=== PATIENT | female | born 1985 | race Asian ===

== ENCOUNTER 2018-01-19 17:55 | Inpatient (IN) | payer OTHER ==
[2018-01-19] MEDS ORDERED: Penicillin G Potassium IV* 5,000,000 UNITS in NS 0.9% 100 ML* 100 ML IVPB ONE (18:18)
[2018-01-19] MEDS ORDERED: OBEPIDURAL* 250 ML EPIDURAL ONE (18:33)
--- NOTE | 2018-01-19 18:33 | HP ---
General Information - Reason for Visit active labor - General Information Maternal Age: 32 Grav: 1 Para: 0 SAB: 0 IEA: 0 Estimated Due Date: 01/18/18 Determined By: Early Ultrasound Maternal Blood Type and Rh: B Positive - Results this Serology/RPR Result: Non-Reactive Rubella Result: Immune HBsAg Result: Negative HIV Result: Negative GBS Culture Result: Positive Past Medical History Pertinent Past Medical History: Non-Contributory Pertinent Past Surgical History: None Pertinent Family History: Non-Contributory - Antepartal Records Antepartal Records: Reviewed, Complicated by: - GBS positive Review of Systems Constitutional: Uncomfortable CV Complaint: No Respiratory: Shortness of Breath: No Gastrointestinal: No Nausea/Vomiting, Normal Bowel Movement Genitourinary: No Dysuria, No Bleeding, No Leaking Fluid, Spotting Musculoskeletal: Contractions Neurological: No Headache, No Visual Changes Movement: Normal Exam T:97.8, P:80, R:16, BP: 114/90, O2:99% - Measurements Height: 5 ft 1.02 in Weight: 118 lb Weight in lbs: [id number] Body Mass Index (BMI): 22.2 Pre- Weight: 103 lb Weight Gained This : 15 lbs and 0 ozs - Exam Breast: Breast Exam Deferred CVA: No CVA Tenderness Extremities: No Edema Heart: Normal Rhythm/Heart Sounds HEENT: No Significant Findings Lungs: Clear Bilaterally Rectal: Rectal Exam Deferred Reflexes: DTR 2+ Thyroid: No Thyromegaly - Abdominal Exam Abdomen Exam: Non-Tender, Fundal Height Consistent with Dates - Ultrasound/Biophysical Profile Ultrasound Status: Not Done Targeted Exam Findings Estimated Weight: 6lbs 12oz Cervical Exam: 5cm Effacement: 100% Station: +1 Presenting Part: Vertex Membrane Status: Intact Bleeding/Discharge: Bloody Show EFM Findings - External Monitor Findings Baseline Heart Rate: 140 External Monitor Findings: Accelerations Present, No Pattern of Variable or Late Decelerations, Variability Moderate, Baseline Stable Contractions: Regular, Moderate, 45-90 Seconds Contraction Frequency: 3-5 Assessment/Plan - Assessment 32 y.o. 40w1d EGA, GBS +, active labor - Obstetrical Risk Factors Obstetrical Risk Factors: GBS Positive - Plan Plan: Antibiotic Prophylaxis, Admit - Anticipate Vaginal Delivery - Date/Time of Admission Date of Admission: 01/19/18 Time of Admission: 18:00
[2018-01-19 18:41] LABS: ABS Basophils 0 10^3/ul (0-0.2); ABS Eosinophils 0 10^3/ul (0-0.6); ABS Monocytes 0.4 10^3/ul (0-0.8); ABS Neutrophils 7.2 10^3/ul (1.5-7.7); ABS Nucleated RBC 0 10^3/ul; Eosinophil % 0.2 % (0-6); Hematocrit 39 % (35-47); Hemoglobin 13.6 g/dl (12.0-16.0); Lymphocyte % 11.9 % (25-47); Mean Corpuscular HGB Conc 35 g/dl (31-36); Mean Corpuscular Hemoglobin 35 pg (27-31); Mean Corpuscular Volume 98 fL (80-97); Mean Platelet Volume 9.3 um3 (7.4-10.4); Nucleated Red Blood Cells % 0.1; Platelet Count 196 10^3/ul (150-450); Red Blood Count 3.92 10^6/ul (4.00-5.40); Red Cell Distribution Width 12 % (10.5-15); White Blood Count 8.8 10^3/ul (3.5-10.8)
[2018-01-19] MEDS ORDERED: Famotidine TAB* 20 MG PO PRN (19:26)
[2018-01-19] MEDS ORDERED: Phenylephrine IV* 40 MCG/ML 10 ML SYRINGE IV PUSH PRN (19:26)
[2018-01-19] MEDS ORDERED: EPHEDrine (Pressors)* 50 MG/ML VIAL IV PUSH PRN (19:26)
[2018-01-19] MEDS ORDERED: Sodium Citrate/Citric Acid* 15 ML UDC PO PRN (19:26)
[2018-01-19] MEDS ORDERED: OBEPIDURAL* 250 ML EPIDURAL SCH (20:00)
[2018-01-19] MEDS: Penicillin G Potassium IV* 2,500,000 UNITS in NS 0.9% 100 ML* 100 ML IVPB SCH (22:58)
--- NOTE | 2018-01-20 02:27 | PN ---
Progress Note - Progress Note Date of Service: 01/19/18 - 19:30 Note: S:Pt comfortable after epidural. O: BP:117/75, P:83, O2:100% FHT: 145 baseline, moderate variability, + accels, -decels ctx q 4-6min A: 32. y.o. 40w1d EGA, labor, GBS + P: 1) Cont antibiotic prophylaxis 2) position changes 3) Reevaluate PRN
--- NOTE | 2018-01-20 02:29 | PN ---
Progress Note - Progress Note Date of Service: 01/19/18 - 22:55 SOAP: S:Pt comfortable with epidural. O: BP:119/67 FHT: 150 baseline, moderate variability, + accels, -decels ctx q 6-7min cervix: 8cm A: 32. y.o. 40w1d EGA, labor, GBS + P: 1) Cont antibiotic prophylaxis 2) position changes 3) Reevaluate PRN
--- NOTE | 2018-01-20 02:32 | PN ---
Progress Note - Progress Note Date of Service: 01/20/18 SOAP: S:Pt ineffective at pushing. Reviewed options to labor down or to turn off epidural until increase in pressure. Pt elects to turn off epidural and push with increased pressure. O: BP:128/79, P:77, T:98.9 FHT: 150 baseline, moderate variability, + accels, -decels ctx q 2-3min A: 32. y.o. 40w2d EGA, labor, GBS + P: 1) Epidural discontinued 2) labor down until urge to push
[2018-01-20] MEDS: Penicillin G Potassium IV* 2,500,000 UNITS in NS 0.9% 100 ML* 100 ML IVPB SCH (03:18)
[2018-01-20] MEDS ORDERED: Oxytocin in LR* 20 UNITS/1,000 ML BAG IVPB ONE (04:20)
--- NOTE | 2018-01-20 04:49 | PROCNOTE ---
[facility] OB: Delivery Note - Delivery A Date of : 01/20/18 Time of : 04:15 Sex: Male Gestational Age in Weeks and Days at Delivery: 40 Weeks and 2 Days Delivery Method: Spontaneous Vaginal Labor: Spontaneous Did Patient attempt ?: N/A, No Previous Amniotic Fluid: Clear Estimated Blood Loss: 100 Anesthesia/Analgesia: CEI for Labor Delivered By: Shanon Espinal - Nursery Level of Nursery: Regular/Bedside - Perineum Perineal Injury: Bruising, Right Mediolateral, 1st Degree Perineal Repair: By Delivering Practioner - Events Delivery Events of Note: Pitocin Only After Delivery, Full Course of Antibiotics
[2018-01-20] MEDS ORDERED: Glycerin ADULT SUPP PR PRN (04:50)
[2018-01-20] MEDS ORDERED: Oxytocin in LR* 20 UNITS/1,000 ML BAG IVPB SCH (05:00)
[2018-01-20] MEDS: Ibuprofen TAB* 600 MG PO PRN ×3 (06:37→18:09)
[2018-01-20] MEDS: Dibucaine 1% 28.35 GM TUBE PR PRN (09:41)
[2018-01-20] MEDS: Acetaminophen TAB* 325 MG PO PRN ×3 (09:41→21:19)
[2018-01-20] MEDS: Witch Hazel PAD* JAR TOPICAL PRN (09:41)
[2018-01-20] MEDS: Docusate CAP* 100 MG PO SCH ×3 (09:43→21:19)
[2018-01-20] MEDS: Simethicone TAB* 80 MG TAB.CHEW PO SCH ×2 (09:43→12:08)
[2018-01-21] MEDS: Ibuprofen TAB* 600 MG PO PRN ×4 (00:19→19:34)
[2018-01-21] MEDS: Acetaminophen TAB* 325 MG PO PRN ×4 (03:20→22:12)
[2018-01-21 06:36] LABS: ABS Basophils 0 10^3/ul (0-0.2); ABS Eosinophils 0 10^3/ul (0-0.6); ABS Lymphocytes 1.6 10^3/ul (1.0-4.8); ABS Monocytes 0.6 10^3/ul (0-0.8); ABS Neutrophils 8.4 10^3/ul (1.5-7.7); ABS Nucleated RBC 0 10^3/ul; Eosinophil % 0.4 % (0-6); Hematocrit 31 % (35-47); Hemoglobin 10.6 g/dl (12.0-16.0); Lymphocyte % 15.2 % (25-47); Mean Corpuscular HGB Conc 35 g/dl (31-36); Mean Corpuscular Hemoglobin 34 pg (27-31); Mean Corpuscular Volume 99 fL (80-97); Mean Platelet Volume 8.8 um3 (7.4-10.4); Nucleated Red Blood Cells % 0.1; Platelet Count 144 10^3/ul (150-450); Red Blood Count 3.08 10^6/ul (4.00-5.40); Red Cell Distribution Width 12 % (10.5-15); White Blood Count 10.7 10^3/ul (3.5-10.8)
[2018-01-21] MEDS ORDERED: Ferrous Gluconate TAB* 324 MG TAB PO SCH (09:00)
[2018-01-21] MEDS: Docusate CAP* 100 MG PO SCH ×3 (10:00→19:34)
[2018-01-21] MEDS: Witch Hazel PAD* JAR TOPICAL PRN (19:34)
[2018-01-21] MEDS: Dibucaine 1% 28.35 GM TUBE PR PRN (19:34)
--- NOTE | 2018-01-21 22:19 | PTEDU ---
Patient Name: JOHANA BOURGEOIS JOHANA BOURGEOIS selected video: Never Ever Shake a Baby to view on 01/21/2018 at 10:17:43 [id number]
--- NOTE | 2018-01-21 22:29 | PTEDU ---
Patient Name: JOHANA BOURGEOIS JOHANA BOURGEOIS selected video: BBOB: Nurturing Your Gorgeous &Growing Baby by to view on 01/03 at 10:28:28 [id number]
--- NOTE | 2018-01-21 22:30 | PTEDU ---
Patient Name: JOHANA BOURGEOIS JOHANA BOURGEOIS selected video: BBOB: Nurturing Your Gorgeous &Growing Baby by to view on 01/03 at 10:29:40 [id number]
--- NOTE | 2018-01-21 22:59 | PTEDU ---
Patient Name: JOHANA BOURGEOIS JOHANA BOURGEOIS selected video: BBOB: Bonding Through Massage to view on 01/21/2018 at 10:58:24 PM [id number]
--- NOTE | 2018-01-21 23:50 | PTEDU ---
Patient Name: JOHANA BOURGEOIS JOHANA BOURGEOIS selected video: Follow Me Mum: The New to Successful to view on 01/21/2018 at 11:49:39 [id number]
[2018-01-22] MEDS: Ibuprofen TAB* 600 MG PO PRN ×3 (01:25→13:51)
[2018-01-22] MEDS: Acetaminophen TAB* 325 MG PO PRN ×3 (03:38→11:29)
[2018-01-22] MEDS: Docusate CAP* 100 MG PO SCH ×2 (07:45→13:51)
[2018-01-22] MEDS: Dibucaine 1% 28.35 GM TUBE PR PRN (08:00)
[2018-01-22] MEDS: Witch Hazel PAD* JAR TOPICAL PRN (08:00)
[2018-01-22 08:53] VITALS: BP 107/64
[2018-01-22] MEDS ORDERED: Hydrocortisone 1% CREAM* 30 GM TUBE TOPICAL SCH (14:00)
== END 2018-01-22 15:47 | disposition home or self-care (01) | DRG 775 ==
LOC: MCHOBOUT 17:55 → MCHOB 18:19
PROVIDERS: ADMIT Midwife; ATTEND Midwife
PROC: 10E0XZZ Delivery of Products of Conception, External Approach (ICD-10-PCS; principal; 2018-01-19)
PROC: 10907ZC Drainage of Amniotic Fluid, Therapeutic from Products of Conception, Via Natural or Artificial Opening (ICD-10-PCS; 2018-01-19)
PROC: 4A1HXCZ Monitoring of Products of Conception, Cardiac Rate, External Approach (ICD-10-PCS; 2018-01-19)
DX: O48.0 Post-term pregnancy (principal); Z37.0 Single live birth; Z3A.40 40 weeks gestation of pregnancy; O99.824 Streptococcus B carrier state complicating childbirth; O70.0 First degree perineal laceration during delivery; Z23 Encounter for immunization
CPT/HCPCS: 36415; 85025; 86850; 86900; 86901; 90686; A9270-GY; J2540